=== PATIENT | female | born 1980 | race Caucasian/White ===

== ENCOUNTER 2017-07-17 07:57 | Emergency (ER) | payer OTHER ==
[~2017-07-17] VITALS: Ht 167.6 cm; Wt 70.0 kg
[~2017-07-17 07:57] MED LIST: AMOX875T20 PO; NAPR550 PO; Z.0.NO CURRENT MEDS
[2017-07-17 08:06] VITALS: BP 135/76; PULSE 68; RESP 15; TEMP 97.5; O2SAT 100
[2017-07-17] MEDS ORDERED: METHOCARBAMOL 500 MG TAB PO ONE (08:45)
[2017-07-17] MEDS ORDERED: IBUPROFEN 800 MG TAB PO ONE (08:45)
--- NOTE | 2017-07-17 09:37 | RADRPT ---
EXAM DATE/TIME: 07/17/2017 08:51 [place] COMPARISON: No previous studies available for comparison. INDICATIONS : Right arm pain. MEDICAL HISTORY : Reproductive disorders. SURGICAL HISTORY : None. ENCOUNTER: Initial ACUITY: 1 day PAIN SCORE: 6/10 LOCATION: Right arm. FINDINGS: There is spontaneous flow documented in the brachial, basilic, cephalic, axillary, and subclavian vei ns. The vessels are compressible and augmentation response is documented. No filling defects are se en. The flow is phasic with respiration. Direction of flow in the jugular vein is caudal. CONCLUSION: No DVT in right upper extremity. Balta Maurice MD on July 17, 2017 at 9:35 Board Certified Radiologist. This report was verified electronically.
[2017-07-17] MEDS ORDERED: ROBA500T PO (09:51)
[2017-07-17] MEDS ORDERED: IBUP1TAB7 PO (09:51)
--- NOTE | 2017-07-17 09:51 | PD ---
HPI Chief Complaint: Musculoskeletal Complaint Time Seen by Provider: 08:22 Travel History International Travel<30 days: No Contact w/Intl Traveler<30days: No Traveled to known affect area: No History of Present Illness HPI 37-year-old female presents to the emergency department with complaint of right arm pain to her distal biceps and proximal forearm area 2 weeks with worsening 1 week. She cleans homes for living and may have overused her arm and strained in someway. Otherwise, denies injury. Denies history of DVT/PE. Reports paresthesias in her fourth and fifth fingers at times, more at night. Reports history of carpal tunnel. Otherwise, denies paresthesias, loss of sensation, decreased range of motion, decreased strength to the affected extremity. Denies fever, vomiting. Has been taking Tylenol, Advil, and using an Joel bandage for support. Rates pain 7/10. Worse with hyperextension of the right arm and worse in the mornings after waking up while the arms at rest. Pain is better while at rest. No primary care provider. No known allergies. Denies significant past medical history. Has no other medical complaints. No other modifying factors or associated signs and symptoms. PFSH Past Medical History Diminished Hearing: No Reproductive: Yes ?: Not Social History Alcohol Use: No Tobacco Use: Yes Allergies-Medications (Allergen,Severity, Reaction): Coded Allergies: No Known Allergies (Verified , 07/25/14) Reported Meds & Prescriptions Reported Meds & Active Scripts Active Robaxin (Methocarbamol) 500 Mg Tab 500 Mg PO QID PRN Ibuprofen 800 Mg Tab 800 Mg PO Q6HR PRN Amoxicillin/Clavulanate P (Amoxicillin/Clavulanate Potassium) 875 Mg Tab 875 Mg PO BID Anaprox Ds (Naproxen Sodium) 550 Mg Tab 1 Tab PO Q8 10 Days Reported No Current Meds (Miscellaneous Medication) Misc Review of Systems Except as stated in HPI: all other systems reviewed are Neg Physical Exam Narrative GENERAL: Well-nourished, well-developed female patient, in no acute distress SKIN: Warm and dry. HEAD: Atraumatic. Normocephalic. EYES: Pupils equal and round. No scleral icterus. No injection or drainage. ENT: Mucosa pink and moist. Airway patent. NECK: Trachea midline. CARDIOVASCULAR: Regular rate. RESPIRATORY: No accessory muscle use. GASTROINTESTINAL: Flat. MUSCULOSKELETAL: Right arm with full range of motion and sensory intact; with tenderness on palpation to the distal bicep region and proximal forearm region; without erythema, edema, ecchymosis; full push/pull strength and speech language pathologist prn strength; no obvious deformities. Right upper extremity is supple and nontender with 2+ radial pulse and sensory intact and without erythema or edema. No obvious deformities. No clubbing. No cyanosis. No edema. NEUROLOGICAL: Awake and alert. Oriented 3. No obvious cranial nerve deficits. Motor grossly within normal limits. Normal speech. PSYCHIATRIC: Appropriate mood and affect; insight and judgment normal. Data Data Last Documented VS Vital Signs Date Time Temp Pulse Resp B/P (MAP) Pulse Ox O2 Delivery O2 Flow Rate FiO2 07/17/17 08:06 97.5 68 15 135/76 (95) 100 Orders Orders Us Arm Venous Doppler (07/17/17 ) Methocarbamol (Robaxin) (07/17/17 08:45) Ibuprofen (Motrin) (07/17/17 08:45) Ed Discharge Order (07/17/17 09:52) [facility] Medical Decision Making Medical Screen Exam Complete: Yes Emergency Medical Condition: Yes Medical Record Reviewed: Yes Differential Diagnosis Muscle strain, arm pain, DVT, bicep tendon tear Narrative Course 37-year-old female with right arm pain. Denies injury. I do not suspect fracture, dislocation and feel that imaging is not necessary. Suspecting muscle strain of the arm. I will ultrasound the arm to rule out DVT. Robaxin, ibuprofen, right upper extremity venous Doppler ultrasound ordered. 0949: Right upper extremity venous Doppler ultrasound concludes: Upper Extremity Ultrasound 07/17/17 0000 Signed Impressions: Service Date/Time: Monday, July 17, 2017 08:51 - CONCLUSION: No DVT in right upper extremity. Balta Maurice MD Discussed ultrasound findings with the patient. Robaxin, ibuprofen prescribed for home. Instructed patient to follow-up with primary care provider if symptoms persist. Instructed patient to follow up with primary care provider. Patient verbalizes understanding and agreement with treatment plan. Patient is medically cleared and stable for discharge. Discussed reasons to return to the emergency department. Patient agrees with treatment plan. The patients vital signs are stable and the patient is stable for outpatient follow-up and treatment. Patient discharged home, stable and in no acute distress. Diagnosis Primary Impression: Right arm pain Referrals: [facility] Primary Care Physician Patient Instructions: Arm Pain (ED), General Instructions Departure Forms: Tests/Procedures, Work Release Enter return to work date: Jul 23, 2017 Special Instructions: May return to work earlier at patient's discretion Additional Instructions: Tylenol or ibuprofen as directed and as needed for pain Robaxin as prescribed and as needed for muscle spasms Heating pad and/or ice to affected area to reduce pain Avoid aggravating activities; increase activity as tolerated Follow-up with primary care provider Return to emergency department immediately with worsening of symptoms Med/Other Pt SpecificInfo: Prescription(s) given Scripts Methocarbamol (Robaxin) 500 Mg Tab 500 MG PO QID Y for MUSCLE SPASM, #30 TAB 0 Refills Prov: Melanie Carroll 07/17/17 Ibuprofen (Ibuprofen) 800 Mg Tab 800 MG PO Q6HR Y for PAIN, #30 TAB 0 Refills Prov: Melanie Carroll 07/17/17 Disposition: 01 DISCHARGE HOME Condition: Stable Melanie Carroll Jul 17, 2017 09:51
== END 2017-07-17 10:10 | disposition home or self-care (01) ==
LOC: NEPD 07:57
DX: M79.601 Pain in right arm (principal); Z72.0 Tobacco use
CPT/HCPCS: 93971; 99284